=== PATIENT | female | born 1990 | race Two or more races ===

== ENCOUNTER 2024-09-08 05:36 | Inpatient (IN) | payer OTHER ==
[~2024-09-08] VITALS: Ht 157.5 cm; Wt 2.7 kg
[2024-09-08 05:58] VITALS: BP 112/74
[2024-09-08] MEDS ORDERED: RINGERS SOLUTION,LACTATED 1,000 ML IV SCH (06:00)
[2024-09-08] MEDS ORDERED: CEFAZOLIN SODIUM 1,000 MG VIAL IV SCH ×2 (06:00→18:00)
[2024-09-08] MEDS ORDERED: LOVENOX40 MG/0.4 SUBCUTANEO (06:59)
[2024-09-08 07:49] LABS: URINE BACTERIA 1445.3 uL (0.0-1933); URINE EPITHELIAL CELLS 46.3 uL (0.0-38.8); URINE WBC 34.6 uL (0.0-23.2)
[2024-09-08 07:58] LABS: URINE APPEARANCE SL CLOUDY
[2024-09-08 07:59] LABS: URINE BILIRRUBIN NEGATIVE (NEGATIVE); URINE BLOOD NEGATIVE; URINE GLUCOSE NEGATIVE (NEGATIVE); URINE KETONE NEGATIVE (NEGATIVE); URINE LEUKOCYTE NEGATIVE; URINE NITRATE NEGATIVE; URINE PROTEIN NEGATIVE (NEGATIVE); URINE UROBILINOGEN 0.2 E.U./dl
[2024-09-08 08:00] LABS: HEMATOCRIT 34.9 % (36.0-45.00); MEAN CELL VOLUME 85.5 fL (80.00-100.00); MEAN CORPUSCULAR HEMOGLOBIN 29.4 pg (27.00-32.0); MEAN CORPUSCULAR HGB CONC 34.4 g/dl (32.0-36.0); PLATELET COUNT 266 K/uL (150-450); RED BLOOD COUNT 4.08 M/uL (4.00-6.00); RED CELL DISTRIBUTION WIDTH 13.7 % (11.5-14.5)
[2024-09-08 08:04] LABS: URINE COLOR YELLOW
[2024-09-08 08:27] LABS: INR < 0.93; PARTIAL THROMBOPLASTIN TIME 25.4 SECONDS (22.0-34.0)
[2024-09-08] MEDS ORDERED: OXYTOCIN 10 UNITS/ML VIAL ONE (09:27)
[2024-09-08] MEDS ORDERED: ERYTHROMYCIN BASE OPHT 1GM EACH TUBE OP ONE (09:27)
[2024-09-08 09:41] VITALS: BP 128/87; O2SAT 97
[2024-09-08] MEDS ORDERED: CARBOPROST TROMETHAMINE 250 MCG/ML AMPUL IM ONE (10:18)
[2024-09-08] MEDS ORDERED: PROMETHAZINE HCL 25 MG/ML AMPUL IV SCH (12:00)
[2024-09-08] MEDS ORDERED: MEPERIDINE HCL/PF 25 MG/ML VIAL IM SCH (12:00)
[2024-09-08] MEDS ORDERED: CEFAZOLIN SODIUM 1,000 MG VIAL IV STA (12:02)
[2024-09-08] MEDS ORDERED: MORPHINE SULFATE 4 MG/ML VIAL IV ONE (12:15)
[2024-09-08] MEDS ORDERED: PROMETHAZINE HCL 25 MG/ML AMPUL ONE (12:40)
[2024-09-08] MEDS ORDERED: CEFAZOLIN SODIUM 1,000 MG VIAL ONE (12:40)
[2024-09-08] MEDS ORDERED: PROMETHAZINE HCL 25 MG/ML AMPUL IV ONE (12:45)
[2024-09-08] MEDS ORDERED: MEPERIDINE HCL 25 MG/ML AMPUL IM ONE (12:45)
[2024-09-08 13:41] VITALS: BP 117/68
[2024-09-08] MEDS ORDERED: KETOROLAC TROMETHAMINE 30 MG VIAL IV SCH ×2 (14:00→20:00)
[2024-09-08] MEDS ORDERED: KETOROLAC TROMETHAMINE 60 MG VIAL IM NR (14:00)
[2024-09-08 16:00] VITALS: BP 111/60
[2024-09-08 18:40] LABS: HEMATOCRIT 33.4 % (36.0-45.00); HEMOGLOBIN 11.6 g/dL (12.0-15.00); MEAN CELL VOLUME 84.9 fL (80.00-100.00); MEAN CORPUSCULAR HEMOGLOBIN 29.4 pg (27.00-32.0); MEAN CORPUSCULAR HGB CONC 34.7 g/dl (32.0-36.0); PLATELET COUNT 241 K/uL (150-450); RED BLOOD COUNT 3.93 M/uL (4.00-6.00); RED CELL DISTRIBUTION WIDTH 13.6 % (11.5-14.5)
[2024-09-09 00:35] VITALS: BP 117/73
[2024-09-09 07:40] VITALS: BP 98/68
[2024-09-09] MEDS ORDERED: ENOXAPARIN SODIUM 40 MG/0.4 ML SYRINGE SUBCUTANEO STA (09:24)
[2024-09-09] MEDS ORDERED: NAPROXEN 500 MG TABLET PO SCH (09:30)
[2024-09-09 17:00] VITALS: BP 128/86
[2024-09-09] MEDS ORDERED: KETOROLAC TROMETHAMINE 30 MG VIAL IM PRN (17:30)
[2024-09-10 00:24] VITALS: BP 102/64
[2024-09-10 08:00] VITALS: BP 111/65
[2024-09-10] MEDS ORDERED: ENOXAPARIN SODIUM 40 MG/0.4 ML SYRINGE SUBCUTANEO SCH (09:00)
[2024-09-10 16:20] VITALS: BP 126/86
[2024-09-11 00:24] VITALS: BP 103/68
[2024-09-11 07:00] VITALS: BP 116/68
[2024-09-11] MEDS ORDERED: BISACODYL 10 MG/SUPP.RECT SUPP.RECT RECTAL STA (08:37)
[2024-09-11] MEDS ORDERED: MAGNESIUM HYDROXIDE 30 ML BLIST.PACK PO STA (08:37)
[2024-09-11] MEDS ORDERED: MINERAL OIL 30 ML BLIST.PACK PO STA (08:37)
[2024-09-11 16:25] VITALS: BP 125/80
[2024-09-11] MEDS ORDERED: ENOXAPARIN SODIUM 40 MG/0.4 ML SYRINGE SUBCUTANEO SCH (18:30)
== END 2024-09-11 19:06 | disposition home or self-care (01) | DRG 787 ==
LOC: LDR 05:36 → OB/GYN 05:36 → O/R 10:09 → OB/GYN 11:16
PROVIDERS: ADMIT Specialist; ATTEND Specialist
PROC: 4A1HXCZ Monitoring of Products of Conception, Cardiac Rate, External Approach (ICD-10-PCS; 2024-09-08)
PROC: 10D00Z1 Extraction of Products of Conception, Low, Open Approach (ICD-10-PCS; principal; 2024-09-08 09:00)
DX: O41.03X0 Oligohydramnios, third trimester, not applicable or unspecified (principal); O99.354 Diseases of the nervous system complicating childbirth; O69.0XX0 Labor and delivery complicated by prolapse of cord, not applicable or unspecified; G35 Multiple sclerosis; Z3A.37 37 weeks gestation of pregnancy; Z37.0 Single live birth